=== PATIENT | female | born 1990 | race Caucasian/White ===

== ENCOUNTER → 2016-07-04 | Outpatient (CLI) | payer BC ==
[~2016-07-04] MED LIST: ACET-1256 PO; MELATAB2 PO; MULT-1018 PEG
[2016-07-04 16:06] LABS: BLOOD UREA NITROGEN 12 mg/dl (7-18); BUN/CREATININE RATIO 12.7 (10-20); CALCIUM 8.9 mg/dl (8.5-10.1); CARBON DIOXIDE 28 mmol/L (21-32); CHLORIDE 104 mmol/L (98-107); CREATININE 0.93 mg/dl (0.60-1.20); GLUCOSE 104 mg/dl (70-99); SODIUM 140 mmol/L (136-145)
[2016-07-04 17:47] LABS: LYME DISEASE AB IGG NEG (NEG); LYME DISEASE AB IGM NEG (NEG)
--- NOTE | 2016-07-04 19:26 | DIAGNOSTIC IMAGING REPORT ---
ABDOMEN 2VIEW W/PA CHEST RTN CLINICAL HISTORY: Lower anterior abdominal pain. Bloating COMPARISON STUDY: No previous studies for comparison. FINDINGS: The erect chest reveals no evidence of free air. There is no evidence of focal pulmonary consolidation.] Erect and supine views of the abdomen reveal no abnormally dilated loops of large or small bowel. There are no transition zone to indicate bowel obstruction. There are nonspecific pelvic basin calcifications. In the absence of renal colic, these likely represent phleboliths. IMPRESSION: 1. No evidence of bowel obstruction. No evidence of free air. 2. Nonspecific pelvic basin calcifications. Electronically signed by: Juaquin Blake M.D. 07/04/2016 7:25 PM Dictated Date/Time: 07/04/2016 7:23 PM
== END | disposition home or self-care (01) ==
LOC: C.RAD 15:20
PROVIDERS: ATTEND Physician Assistant
DX: R14.0 Abdominal distension (gaseous) (principal); M60.9 Myositis, unspecified